=== PATIENT | male | born 1950 | race Caucasian/White ===

== ENCOUNTER 2022-01-21 06:12 | Day surgery (SDC) | payer MEDICARE, OTHER ==
[~2022-01-21] VITALS: Ht 160 cm; Wt 90.0 kg
[2022-01-21] MEDS ORDERED: SODIUM CHLORIDE 0.9% 1,000 ML IV ONE (06:30)
[2022-01-21 07:06] LABS: COVID AG,FIA SOURCE NASAL SWAB
[2022-01-21] MEDS ORDERED: SODIUM CHLORIDE 0.9% 1,000 ML ONE (07:30)
[2022-01-21] MEDS ORDERED: AMLO-257 PO (08:09)
[2022-01-21] MEDS ORDERED: METO-391 PO (08:10)
[2022-01-21] MEDS ORDERED: LOSA-382 PO (08:10)
[2022-01-21] MEDS ORDERED: FURO-152 PO (08:11)
[2022-01-21] MEDS ORDERED: ALLO-97 PO (08:11)
[2022-01-21] MEDS ORDERED: DOXY-354 PO (08:12)
[2022-01-21] MEDS ORDERED: PRED1 PO (08:13)
[2022-01-21] MEDS ORDERED: FAMO20 PO (08:13)
[2022-01-21] MEDS ORDERED: MIDAZOLAM HCL 5 MG/ML VIAL ONE (08:37)
[2022-01-21] MEDS ORDERED: FentaNYL CITRATE PF 100 MCG/2 ML VIAL ONE (08:37)
[2022-01-21] MEDS ORDERED: MethylPREDNISolone SOD SUCC 125 MG/2 ML VIAL IVP ONE (09:30)
[2022-01-21] MEDS ORDERED: MethylPREDNISolone SOD SUCC 125 MG/2 ML VIAL ONE (09:36)
[2022-01-21] MEDS ORDERED: LIDOCAINE 2% 11 ML JELLY TP ONE (12:45)
[2022-01-21] MEDS ORDERED: BENZOCAINE 20% 50 MCG/SPRAY 57 GM TP ONE (12:45)
[2022-01-21] MEDS ORDERED: LIDOCAINE 4% 50 ML SOLUTION TP ONE (12:45)
[2022-01-21] MEDS ORDERED: OXYGEN THERAPY IH SCH (20:00)
== END 2022-01-21 11:45 | disposition home or self-care (01) ==
LOC: SURGERY 06:12
PROVIDERS: ATTEND Internal Medicine Critical Care Medicine
DX: J38.4 Edema of larynx (principal); B37.0 Candidal stomatitis; I10 Essential (primary) hypertension; M10.9 Gout, unspecified; Z20.822 Contact with and (suspected) exposure to COVID-19; Z79.899 Other long term (current) drug therapy; Z98.890 Other specified postprocedural states; Z98.49 Cataract extraction status, unspecified eye
CPT/HCPCS: 31623; 87206; 87101; 87220; 87070; 88108; 88305; 88312; 31624; 71045; 87015; 87426; J3010; J2930; J2250; Q9967; J7030; C9803; Z7610